=== PATIENT | female | born 1935 | race Caucasian/White ===

== ENCOUNTER 2021-10-11 03:15 | Emergency (ER) | payer MEDICARE, BC ==
[2021-10-11] MEDS ORDERED: Lactated Ringers 1,000 ML IV ONE (03:26)
[2021-10-11] MEDS ORDERED: Prochlorperazine 10 MG/2 ML SDV IVPUSH ONE (03:27)
[2021-10-11 03:54] VITALS: PULSE 53
[2021-10-11] MEDS ORDERED: HYDROmorphone 2 MG/ML SDV IVPUSH ONE (04:16)
[2021-10-11] MEDS ORDERED: Ondansetron 4 MG/2 ML SDV IVPUSH ONE (04:16)
[2021-10-11] MEDS ORDERED: Lactated Ringers 1,000 ML IV SCH (05:00)
[2021-10-11 06:20] VITALS: BP 144/55
== END 2021-10-11 06:35 ==
LOC: FB.ED 03:15
DX: K56.609 Unspecified intestinal obstruction, unspecified as to partial versus complete obstruction (principal); I10 Essential (primary) hypertension; Z88.1 Allergy status to other antibiotic agents; Z79.899 Other long term (current) drug therapy; Z79.01 Long term (current) use of anticoagulants; Z20.822 Contact with and (suspected) exposure to COVID-19
CPT/HCPCS: 36415; 43752; 74019; 74176; 80048; 81001; 85027; 96374; 96375; 99284; 99285-25; J0780; J1170; J2405; J7120; U0002

== ENCOUNTER 2021-10-20 10:50 | Inpatient (IN) | payer MEDICARE, BC ==
[2021-10-20] MEDS ORDERED: Nitroglycerin 0.4 MG Tab.SL SL PRN (13:12)
[2021-10-20] MEDS ORDERED: Triamcinolone Acetonide 0.1% Crm 15 GM Tube TOP PRN (13:12)
[2021-10-20] MEDS ORDERED: Polyethylene Glycol 3350 Powder 17 GM Packet PO PRN (13:12)
[2021-10-20] MEDS ORDERED: oxyCODONE 5 MG Tab ONE (13:31)
[2021-10-20] MEDS: oxyCODONE 5 MG Tab PO PRN (13:33)
[2021-10-20] MEDS: Mupirocin Oint 22 GM Tube TOP SCH ×2 (15:19→20:32)
[2021-10-20] MEDS: Acetaminophen 500 MG Tab PO PRN (18:13)
[2021-10-20] MEDS: Metoprolol Succinate 50 MG Tab.ER PO SCH (20:32)
[2021-10-20] MEDS: Apixaban 5 MG Tab PO SCH (20:32)
[2021-10-21] MEDS: Acetaminophen 500 MG Tab PO PRN ×3 (00:10→23:30)
[2021-10-21] MEDS ORDERED: Non-Formulary Medication 1 Each (Omega-3 Fatty Acids/Fish Oil [Fish Oil 1,000 Mg Capsule] PO SCH (09:00)
[2021-10-21] MEDS: Mupirocin Oint 22 GM Tube TOP SCH ×3 (09:13→20:42)
[2021-10-21] MEDS: Furosemide 20 MG Tab PO SCH (09:17)
[2021-10-21] MEDS: Apixaban 5 MG Tab PO SCH ×2 (09:17→20:52)
[2021-10-21] MEDS: Potassium Chloride 10 MEQ Tab.ER PO SCH (09:17)
[2021-10-21] MEDS: Amiodarone 200 MG Tab PO SCH (09:17)
[2021-10-21] MEDS: Chondroitin/Glucosamine Cap PO SCH (09:18)
[2021-10-21] MEDS: atorvaSTATin 10 MG Tab PO SCH (09:19)
[2021-10-21] MEDS: amLODIPine 10 MG Tab PO SCH (09:30)
[2021-10-21] MEDS: Metoprolol Succinate 100 MG Tab.ER PO SCH (09:30)
[2021-10-21] MEDS: Calcium Carbonate 500 MG Tablet PO SCH (09:31)
[2021-10-21] MEDS: Metoprolol Succinate 50 MG Tab.ER PO SCH (20:53)
[2021-10-22] MEDS: Mupirocin Oint 22 GM Tube TOP SCH ×3 (09:52→20:44)
[2021-10-22] MEDS: amLODIPine 10 MG Tab PO SCH (09:55)
[2021-10-22] MEDS: Potassium Chloride 10 MEQ Tab.ER PO SCH (09:56)
[2021-10-22] MEDS: Apixaban 5 MG Tab PO SCH ×2 (09:56→20:45)
[2021-10-22] MEDS: atorvaSTATin 10 MG Tab PO SCH (09:56)
[2021-10-22] MEDS: Amiodarone 200 MG Tab PO SCH (09:56)
[2021-10-22] MEDS: Chondroitin/Glucosamine Cap PO SCH (09:56)
[2021-10-22] MEDS: Calcium Carbonate 500 MG Tablet PO SCH (09:57)
[2021-10-22] MEDS: Metoprolol Succinate 100 MG Tab.ER PO SCH (09:57)
[2021-10-22] MEDS: Furosemide 20 MG Tab PO SCH (09:57)
[2021-10-22] MEDS: Metoprolol Succinate 50 MG Tab.ER PO SCH (20:45)
[2021-10-22] MEDS: Acetaminophen 500 MG Tab PO PRN (21:54)
[2021-10-23] MEDS: Mupirocin Oint 22 GM Tube TOP SCH ×3 (09:19→21:04)
[2021-10-23] MEDS: Furosemide 20 MG Tab PO SCH (09:20)
[2021-10-23] MEDS: Amiodarone 200 MG Tab PO SCH (09:21)
[2021-10-23] MEDS: amLODIPine 10 MG Tab PO SCH (09:22)
[2021-10-23] MEDS: Potassium Chloride 10 MEQ Tab.ER PO SCH (09:22)
[2021-10-23] MEDS: Chondroitin/Glucosamine Cap PO SCH (09:23)
[2021-10-23] MEDS: atorvaSTATin 10 MG Tab PO SCH (09:24)
[2021-10-23] MEDS: Calcium Carbonate 500 MG Tablet PO SCH (09:24)
[2021-10-23] MEDS: Metoprolol Succinate 100 MG Tab.ER PO SCH (09:25)
[2021-10-23] MEDS: Apixaban 5 MG Tab PO SCH ×2 (09:33→21:03)
[2021-10-23] MEDS: Phenylephrine 0.5% Nasal Spray 15 ML Bot NASBOTH PRN ×2 (11:30→13:15)
[2021-10-23] MEDS: Aloe Vera/Sodium Chloride Gel 14.1 GM Tube NAS SCH ×2 (11:30→21:04)
[2021-10-23] MEDS: Acetaminophen 500 MG Tab PO PRN ×2 (13:41→19:41)
[2021-10-23] MEDS: Metoprolol Succinate 50 MG Tab.ER PO SCH (21:03)
[2021-10-24] MEDS: Acetaminophen 500 MG Tab PO PRN ×3 (01:53→20:43)
[2021-10-24] MEDS: Mupirocin Oint 22 GM Tube TOP SCH ×3 (08:33→20:38)
[2021-10-24] MEDS: Potassium Chloride 10 MEQ Tab.ER PO SCH (08:34)
[2021-10-24] MEDS: Apixaban 5 MG Tab PO SCH ×2 (08:34→20:38)
[2021-10-24] MEDS: Calcium Carbonate 500 MG Tablet PO SCH (08:36)
[2021-10-24] MEDS: Chondroitin/Glucosamine Cap PO SCH (08:36)
[2021-10-24] MEDS: Amiodarone 200 MG Tab PO SCH (08:37)
[2021-10-24] MEDS: atorvaSTATin 10 MG Tab PO SCH (08:38)
[2021-10-24] MEDS: Furosemide 20 MG Tab PO SCH (08:38)
[2021-10-24] MEDS: amLODIPine 10 MG Tab PO SCH (08:40)
[2021-10-24] MEDS: Metoprolol Succinate 100 MG Tab.ER PO SCH (08:41)
[2021-10-24] MEDS: Aloe Vera/Sodium Chloride Gel 14.1 GM Tube NAS SCH ×2 (09:26→20:38)
[2021-10-24] MEDS: Metoprolol Succinate 50 MG Tab.ER PO SCH (20:39)
[2021-10-25] MEDS: Mupirocin Oint 22 GM Tube TOP SCH ×3 (08:50→21:21)
[2021-10-25] MEDS: Chondroitin/Glucosamine Cap PO SCH (08:54)
[2021-10-25] MEDS: Potassium Chloride 10 MEQ Tab.ER PO SCH (08:55)
[2021-10-25] MEDS: Amiodarone 200 MG Tab PO SCH (08:56)
[2021-10-25] MEDS: amLODIPine 10 MG Tab PO SCH (08:56)
[2021-10-25] MEDS: Metoprolol Succinate 100 MG Tab.ER PO SCH (08:56)
[2021-10-25] MEDS: atorvaSTATin 10 MG Tab PO SCH (08:57)
[2021-10-25] MEDS: Calcium Carbonate 500 MG Tablet PO SCH (08:57)
[2021-10-25] MEDS: Furosemide 20 MG Tab PO SCH (08:57)
[2021-10-25] MEDS: Apixaban 5 MG Tab PO SCH ×2 (08:58→21:22)
[2021-10-25] MEDS: Aloe Vera/Sodium Chloride Gel 14.1 GM Tube NAS SCH ×2 (08:59→21:21)
[2021-10-25] MEDS: Acetaminophen 500 MG Tab PO PRN ×2 (13:24→21:22)
[2021-10-25] MEDS: Metoprolol Succinate 50 MG Tab.ER PO SCH (21:28)
[2021-10-26] MEDS: Aloe Vera/Sodium Chloride Gel 14.1 GM Tube NAS SCH ×2 (08:26→20:39)
[2021-10-26] MEDS: Mupirocin Oint 22 GM Tube TOP SCH ×3 (08:26→20:39)
[2021-10-26] MEDS: atorvaSTATin 10 MG Tab PO SCH (08:27)
[2021-10-26] MEDS: Amiodarone 200 MG Tab PO SCH (08:27)
[2021-10-26] MEDS: Chondroitin/Glucosamine Cap PO SCH (08:27)
[2021-10-26] MEDS: amLODIPine 10 MG Tab PO SCH (08:27)
[2021-10-26] MEDS: Apixaban 5 MG Tab PO SCH ×2 (08:27→20:38)
[2021-10-26] MEDS: Metoprolol Succinate 100 MG Tab.ER PO SCH (08:28)
[2021-10-26] MEDS: Furosemide 20 MG Tab PO SCH (08:28)
[2021-10-26] MEDS: Potassium Chloride 10 MEQ Tab.ER PO SCH (08:28)
[2021-10-26] MEDS: Calcium Carbonate 500 MG Tablet PO SCH (08:29)
[2021-10-26] MEDS: oxyCODONE 5 MG Tab PO PRN (08:34)
[2021-10-26] MEDS ORDERED: Acetaminophen/HYDROcodone 325-5 MG Tab PO PRN (09:46)
[2021-10-26] MEDS: Acetaminophen 325 MG Tab PO PRN (20:38)
[2021-10-26] MEDS: Metoprolol Succinate 50 MG Tab.ER PO SCH (20:38)
[2021-10-27] MEDS: Mupirocin Oint 22 GM Tube TOP SCH ×3 (08:43→20:28)
[2021-10-27] MEDS: Aloe Vera/Sodium Chloride Gel 14.1 GM Tube NAS SCH ×2 (08:43→20:28)
[2021-10-27] MEDS: Chondroitin/Glucosamine Cap PO SCH (08:46)
[2021-10-27] MEDS: Apixaban 5 MG Tab PO SCH ×2 (08:46→20:27)
[2021-10-27] MEDS: Amiodarone 200 MG Tab PO SCH (08:46)
[2021-10-27] MEDS: Potassium Chloride 10 MEQ Tab.ER PO SCH (08:47)
[2021-10-27] MEDS: Furosemide 20 MG Tab PO SCH (08:47)
[2021-10-27] MEDS: amLODIPine 10 MG Tab PO SCH (08:47)
[2021-10-27] MEDS: atorvaSTATin 10 MG Tab PO SCH (08:47)
[2021-10-27] MEDS: Calcium Carbonate 500 MG Tablet PO SCH (08:48)
[2021-10-27] MEDS: Metoprolol Succinate 100 MG Tab.ER PO SCH (08:48)
[2021-10-27] MEDS: Metoprolol Succinate 50 MG Tab.ER PO SCH (20:27)
[2021-10-27] MEDS: Acetaminophen 325 MG Tab PO PRN (20:28)
[2021-10-28] MEDS: Aloe Vera/Sodium Chloride Gel 14.1 GM Tube NAS SCH ×2 (10:10→21:02)
[2021-10-28] MEDS: Mupirocin Oint 22 GM Tube TOP SCH ×3 (10:11→21:03)
[2021-10-28] MEDS: Apixaban 5 MG Tab PO SCH ×2 (10:12→21:03)
[2021-10-28] MEDS: Chondroitin/Glucosamine Cap PO SCH (10:12)
[2021-10-28] MEDS: Metoprolol Succinate 100 MG Tab.ER PO SCH (10:13)
[2021-10-28] MEDS: Furosemide 20 MG Tab PO SCH (10:14)
[2021-10-28] MEDS: amLODIPine 10 MG Tab PO SCH (10:14)
[2021-10-28] MEDS: Amiodarone 200 MG Tab PO SCH (10:14)
[2021-10-28] MEDS: Potassium Chloride 10 MEQ Tab.ER PO SCH (10:14)
[2021-10-28] MEDS: Calcium Carbonate 500 MG Tablet PO SCH (10:15)
[2021-10-28] MEDS: atorvaSTATin 10 MG Tab PO SCH (10:15)
[2021-10-28] MEDS: Acetaminophen 325 MG Tab PO PRN (21:05)
[2021-10-28] MEDS: Metoprolol Succinate 50 MG Tab.ER PO SCH (21:07)
[2021-10-29] MEDS: Aloe Vera/Sodium Chloride Gel 14.1 GM Tube NAS SCH ×2 (08:17→20:25)
[2021-10-29] MEDS: Mupirocin Oint 22 GM Tube TOP SCH ×3 (08:18→20:26)
[2021-10-29] MEDS: amLODIPine 10 MG Tab PO SCH (08:19)
[2021-10-29] MEDS: Chondroitin/Glucosamine Cap PO SCH (08:19)
[2021-10-29] MEDS: Apixaban 5 MG Tab PO SCH ×2 (08:20→20:28)
[2021-10-29] MEDS: Amiodarone 200 MG Tab PO SCH (08:20)
[2021-10-29] MEDS: Potassium Chloride 10 MEQ Tab.ER PO SCH (08:20)
[2021-10-29] MEDS: Metoprolol Succinate 100 MG Tab.ER PO SCH (08:21)
[2021-10-29] MEDS: Furosemide 20 MG Tab PO SCH (08:23)
[2021-10-29] MEDS: Calcium Carbonate 500 MG Tablet PO SCH (08:23)
[2021-10-29] MEDS: atorvaSTATin 10 MG Tab PO SCH (10:43)
[2021-10-29] MEDS: Ciprofloxacin 500 MG Tab PO SCH (20:25)
[2021-10-29] MEDS: Metoprolol Succinate 50 MG Tab.ER PO SCH (20:28)
[2021-10-29] MEDS: Acetaminophen 325 MG Tab PO PRN (20:37)
[2021-10-30] MEDS: Aloe Vera/Sodium Chloride Gel 14.1 GM Tube NAS SCH ×2 (08:40→20:41)
[2021-10-30] MEDS: Chondroitin/Glucosamine Cap PO SCH (08:41)
[2021-10-30] MEDS: Mupirocin Oint 22 GM Tube TOP SCH ×3 (08:41→20:40)
[2021-10-30] MEDS: Potassium Chloride 10 MEQ Tab.ER PO SCH (08:42)
[2021-10-30] MEDS: Apixaban 5 MG Tab PO SCH ×2 (08:42→20:35)
[2021-10-30] MEDS: Furosemide 20 MG Tab PO SCH (08:42)
[2021-10-30] MEDS: Calcium Carbonate 500 MG Tablet PO SCH (08:42)
[2021-10-30] MEDS: Amiodarone 200 MG Tab PO SCH (08:43)
[2021-10-30] MEDS: atorvaSTATin 10 MG Tab PO SCH (08:44)
[2021-10-30] MEDS: amLODIPine 10 MG Tab PO SCH (08:44)
[2021-10-30] MEDS: Metoprolol Succinate 100 MG Tab.ER PO SCH (08:45)
[2021-10-30] MEDS: Ciprofloxacin 500 MG Tab PO SCH ×3 (08:53→20:34)
[2021-10-30] MEDS: Metoprolol Succinate 50 MG Tab.ER PO SCH (20:36)
[2021-10-30] MEDS: Acetaminophen 325 MG Tab PO PRN (20:37)
[2021-10-31] MEDS: Aloe Vera/Sodium Chloride Gel 14.1 GM Tube NAS SCH ×2 (08:54→21:19)
[2021-10-31] MEDS: Mupirocin Oint 22 GM Tube TOP SCH ×3 (08:54→21:19)
[2021-10-31] MEDS: Apixaban 5 MG Tab PO SCH ×2 (08:57→21:18)
[2021-10-31] MEDS: Chondroitin/Glucosamine Cap PO SCH (08:57)
[2021-10-31] MEDS: Furosemide 20 MG Tab PO SCH (08:58)
[2021-10-31] MEDS: atorvaSTATin 10 MG Tab PO SCH (08:58)
[2021-10-31] MEDS: Potassium Chloride 10 MEQ Tab.ER PO SCH (08:58)
[2021-10-31] MEDS: Calcium Carbonate 500 MG Tablet PO SCH (08:59)
[2021-10-31] MEDS: amLODIPine 10 MG Tab PO SCH (08:59)
[2021-10-31] MEDS: Metoprolol Succinate 100 MG Tab.ER PO SCH (09:00)
[2021-10-31] MEDS: Amiodarone 200 MG Tab PO SCH (09:01)
[2021-10-31] MEDS: Ciprofloxacin 500 MG Tab PO SCH ×2 (09:10→21:19)
[2021-10-31] MEDS: Acetaminophen 325 MG Tab PO PRN (21:18)
[2021-10-31] MEDS: Metoprolol Succinate 50 MG Tab.ER PO SCH (21:21)
[2021-10-31 21:22] VITALS: BP 136/53; PULSE 55
[2021-11-01] MEDS: Chondroitin/Glucosamine Cap PO SCH (08:24)
[2021-11-01] MEDS: Mupirocin Oint 22 GM Tube TOP SCH (08:24)
[2021-11-01] MEDS: Aloe Vera/Sodium Chloride Gel 14.1 GM Tube NAS SCH (08:24)
[2021-11-01] MEDS: Apixaban 5 MG Tab PO SCH (08:25)
[2021-11-01] MEDS: Amiodarone 200 MG Tab PO SCH (08:25)
[2021-11-01] MEDS: Potassium Chloride 10 MEQ Tab.ER PO SCH (08:25)
[2021-11-01] MEDS: amLODIPine 10 MG Tab PO SCH (08:26)
[2021-11-01] MEDS: Furosemide 20 MG Tab PO SCH (08:26)
[2021-11-01] MEDS: atorvaSTATin 10 MG Tab PO SCH (08:26)
[2021-11-01] MEDS: Calcium Carbonate 500 MG Tablet PO SCH (08:26)
[2021-11-01] MEDS: Metoprolol Succinate 100 MG Tab.ER PO SCH (08:27)
[2021-11-01] MEDS: Ciprofloxacin 500 MG Tab PO SCH (08:32)
== END 2021-11-01 13:25 | disposition home health service (06) | DRG 948 ==
LOC: FB.MS 12:20
PROVIDERS: ADMIT Family Medicine; ATTEND Student in an Organized Health Care Education/Training Program
PROC: 2Y41X5Z Packing of Nasal Region using Packing Material (ICD-10-PCS; principal; 2021-10-23)
DX: R53.1 Weakness (principal); T81.49XA Infection following a procedure, other surgical site, initial encounter; K91.30 Postprocedural intestinal obstruction, unspecified as to partial versus complete; I48.11 Longstanding persistent atrial fibrillation; I10 Essential (primary) hypertension; R04.0 Epistaxis; G89.29 Other chronic pain; M54.9 Dorsalgia, unspecified; Z88.1 Allergy status to other antibiotic agents; Z51.5 Encounter for palliative care; Z90.49 Acquired absence of other specified parts of digestive tract; Z87.19 Personal history of other diseases of the digestive system; Z98.890 Other specified postprocedural states; Z78.9 Other specified health status; Z95.5 Presence of coronary angioplasty implant and graft; Z79.899 Other long term (current) drug therapy; Z98.51 Tubal ligation status
CPT/HCPCS: 36415; 80048; 85025; 97110-GO; 97110-GP; 97116-GP; 97161-GP; 97165-GO; 97530-GO; 97535-GO; A9270-GY

== ENCOUNTER 2022-07-27 11:28 | Emergency (ER) | payer MEDICARE, BC ==
[2022-07-27] MEDS ORDERED: Acetaminophen/HYDROcodone 325-5 MG Tab PO ONE ×2 (11:39→13:11)
[2022-07-27] MEDS ORDERED: Ketorolac 30 MG/ML SDV IM ONE (11:39)
[2022-07-27 13:14] VITALS: BP 157/71; PULSE 52
[2022-07-27 13:17] LABS: ESTIMATED GFR 55 mL/min (>60)
== END 2022-07-27 14:18 | disposition home or self-care (01) ==
LOC: FB.ED 11:28
DX: M51.35 Other intervertebral disc degeneration, thoracolumbar region (principal); M47.815 Spondylosis without myelopathy or radiculopathy, thoracolumbar region; M43.15 Spondylolisthesis, thoracolumbar region; I48.91 Unspecified atrial fibrillation; I10 Essential (primary) hypertension; Z79.01 Long term (current) use of anticoagulants; Z88.1 Allergy status to other antibiotic agents; Z79.899 Other long term (current) drug therapy
CPT/HCPCS: 36415; 72072; 72100; 80053; 84484; 85025; 96372; 99284; A9270-GY; J1885

== ENCOUNTER 2022-10-01 11:02 | Emergency (ER) | payer MEDICARE, BC ==
[2022-10-01] MEDS ORDERED: traMADol 50 MG Tab PO ONE (11:03)
[2022-10-01] MEDS ORDERED: Diazepam 2 MG Tab PO ONE (11:48)
[2022-10-01 12:24] LABS: ESTIMATED GFR 62 mL/min (>60)
[2022-10-01] MEDS ORDERED: Sodium Chloride 0.9% 10 ML Syringe FLUSH PRN (13:30)
[2022-10-01] MEDS ORDERED: Ketorolac 30 MG/ML SDV IVPUSH ONE (13:30)
[2022-10-01] MEDS ORDERED: Sodium Chloride 0.9% 500 ML IV ONE (13:32)
[2022-10-01] MEDS ORDERED: Iopamidol 755 Mg/ML 100 ML Bottle IV ONE (13:41)
[2022-10-01] MEDS ORDERED: Ondansetron 4 MG/2 ML SDV IVPUSH ONE (14:25)
[2022-10-01] MEDS ORDERED: Morphine 4 MG/ML VIAL IVPUSH ONE (14:25)
[2022-10-01 16:24] VITALS: BP 153/63; PULSE 48
== END 2022-10-01 16:18 | disposition home or self-care (01) ==
LOC: FB.ED 11:02
DX: S29.012A Strain of muscle and tendon of back wall of thorax, initial encounter (principal); I48.91 Unspecified atrial fibrillation; I10 Essential (primary) hypertension; Z88.1 Allergy status to other antibiotic agents; Z79.01 Long term (current) use of anticoagulants; Z79.899 Other long term (current) drug therapy
CPT/HCPCS: 36415; 71046; 71275; 80053; 81001; 83735; 84484; 85025; 85379; 86140; 93005; 93010; 96361; 96374; 96375; 99284; 99284-25; A9270-GY; J1885; J2270; J2405; J3490; J7040; Q9967

== ENCOUNTER 2022-11-04 21:34 | Inpatient (IN) | payer MEDICARE, BC ==
[2022-11-04] MEDS ORDERED: traMADol 50 MG Tab PO ONE (22:02)
[2022-11-04 22:04] LABS: BASOPHILS ABSOLUTE AUTO 0.1 x10-3/uL (0.0-0.1); BASOPHILS PERCENT AUTO 0.9 % (0.2-1.5); EOSINOPHILS ABSOLUTE AUTO 0.1 x10-3/uL (0.0-0.8); EOSINOPHILS PERCENT AUTO 1.5 % (0.6-8.1); LYMPHOCYTES ABSOLUTE AUTO 2.2 x10-3/uL (1.0-4.4); LYMPHOCYTES PERCENT AUTO 26.7 % (18.4-52.1); MEAN CORPUSCULAR HEMOGLOBIN 36.1 pg (23.9-33.9); MEAN CORPUSCULAR HGB CONC 34.2 g/dL (31.9-34.8); MEAN CORPUSCULAR VOLUME 105.5 fL (76.7-100.5); MEAN PLATELET VOLUME 7.6 fL (7.1-12.4); MONOCYTES ABSOLUTE AUTO 0.9 x10-3/uL (0.3-1.0); MONOCYTES PERCENT AUTO 10.8 % (4.4-15.7); NEUTROPHILS PERCENT AUTO 60.1 % (30.8-76.2); PLATELET COUNT,PLT 299 x10(3)uL (151-488); RED BLOOD CELL COUNT 3.88 x10(6)uL (3.60-5.20); RED CELL DISTRIBUTION WIDTH 13.4 % (12.3-16.5); WHITE BLOOD CELL COUNT,WBC 8.3 x10-3/uL (3.0-10.3)
[2022-11-04 22:11] LABS: BLOOD UREA NITROGEN,BUN 21 mg/dL (7-18); BUN/CREATININE RATIO 19.1 (9-20); CALCIUM 9.2 mg/dL (8.6-10.2); CARBON DIOXIDE,CO2 30 mmol/L (21-32); CHLORIDE,CL 102 mmol/L (100-110); CREATININE 1.1 mg/dL (0.55-1.02); EST CRCL DRUG DOSING (CG) 32.42 mL/min; ESTIMATED GFR 49 mL/min (>60); GLUCOSE RANDOM 115 mg/dL (80-116); POTASSIUM,K 4.4 mmol/L (3.5-5.3); SODIUM,NA 139 mmol/L (135-145)
[2022-11-04 22:17] LABS: A/G RATIO 0.9; ALANINE AMINOTRANSFERASE,ALT 61 U/L (12-36); ALBUMIN 3.5 g/dL (3.2-4.6); ALKALINE PHOSPHATASE 101 IU/L (56-112); ASPARTATE AMNIOTRANSFERASE,AST 41 IU/L (5-25); BILIRUBIN TOTAL 0.4 mg/dL (0.1-1.3); PROTEIN TOTAL,TP 7.4 g/dL (6.0-8.0)
[2022-11-05] MEDS ORDERED: Ondansetron 4 MG Tab.DIS PO PRN (00:16)
[2022-11-05] MEDS ORDERED: traMADol 50 MG Tab PO PRN (00:24)
[2022-11-05 00:49] LABS: BILIRUBIN,URINE NEGATIVE (NEGATIVE); GLUCOSE,URINE NORMAL (NORMAL); KETONES,URINE NEGATIVE (NEGATIVE); LEUKOCYTE ESTERASE,URINE NEGATIVE (NEGATIVE); NITRITE,URINE NEGATIVE (NEGATIVE); OCCULT BLOOD,URINE NEGATIVE (NEGATIVE); PROTEIN,URINE NEGATIVE (NEGATIVE); UROBILINOGEN,URINE NORMAL (NEGATIVE)
[2022-11-05 00:53] LABS: APPEARANCE,URINE CLEAR (CLEAR); BACTERIA,URINE FEW (NS); COLOR,URINE YELLOW (YELLOW); RBC,URINE 0-5 (0-5); SQUAMOUS EPITHELIAL CELLS,UR FEW (NS,R,O); WBC,URINE 0-5 (0-5)
[2022-11-05] MEDS: Acetaminophen/HYDROcodone 325-5 MG Tab PO PRN ×4 (00:59→20:18)
[2022-11-05] MEDS: Amiodarone 200 MG Tab PO SCH (12:03)
[2022-11-05] MEDS: Apixaban 5 MG Tab PO SCH ×2 (12:03→20:18)
[2022-11-05] MEDS: Furosemide 20 MG Tab PO SCH (12:04)
[2022-11-05] MEDS: Lisinopril 20 MG Tab PO SCH (12:04)
[2022-11-05] MEDS: amLODIPine 10 MG Tab PO SCH (12:04)
[2022-11-05] MEDS: Metoprolol Succinate 50 MG Tab.ER PO SCH (12:05)
[2022-11-05] MEDS: Lidocaine 4% 1 each Patch TOP PRN (12:09)
[2022-11-05] MEDS: Potassium Chloride 10 MEQ Tab.ER PO SCH (12:19)
[2022-11-05] MEDS: Acetaminophen 325 MG Tab PO PRN (16:14)
[2022-11-05] MEDS: Polyethylene Glycol 3350 Powder 17 GM Packet PO PRN (20:18)
[2022-11-05] MEDS ORDERED: atorvaSTATin 10 MG Tab PO SCH (21:00)
[2022-11-06] MEDS: Acetaminophen 325 MG Tab PO PRN ×5 (00:19→22:14)
[2022-11-06] MEDS: Apixaban 5 MG Tab PO SCH (08:39)
[2022-11-06] MEDS: Metoprolol Succinate 50 MG Tab.ER PO SCH (08:39)
[2022-11-06] MEDS: amLODIPine 10 MG Tab PO SCH (08:40)
[2022-11-06] MEDS: Furosemide 20 MG Tab PO SCH (08:40)
[2022-11-06] MEDS: Acetaminophen/HYDROcodone 325-5 MG Tab PO PRN (08:40)
[2022-11-06] MEDS: Lisinopril 20 MG Tab PO SCH (08:42)
[2022-11-06] MEDS: Potassium Chloride 10 MEQ Tab.ER PO SCH (08:42)
[2022-11-06] MEDS: Amiodarone 200 MG Tab PO SCH (08:42)
[2022-11-06] MEDS: Lidocaine 4% 1 each Patch TOP PRN (12:55)
[2022-11-06] MEDS ORDERED: atorvaSTATin 10 MG Tab PO SCH (21:00)
[2022-11-07] MEDS: Acetaminophen/HYDROcodone 325-5 MG Tab PO PRN ×3 (01:59→20:18)
[2022-11-07] MEDS: Polyethylene Glycol 3350 Powder 17 GM Packet PO PRN (07:02)
[2022-11-07] MEDS ORDERED: Lidocaine 4% 1 each Patch TOP PRN (08:00)
[2022-11-07] MEDS: Metoprolol Succinate 50 MG Tab.ER PO SCH (08:28)
[2022-11-07] MEDS: Potassium Chloride 10 MEQ Tab.ER PO SCH (08:29)
[2022-11-07] MEDS: Amiodarone 200 MG Tab PO SCH (08:29)
[2022-11-07] MEDS: Apixaban 5 MG Tab PO SCH ×2 (08:29→20:11)
[2022-11-07] MEDS: Lisinopril 20 MG Tab PO SCH (08:29)
[2022-11-07] MEDS: Furosemide 20 MG Tab PO SCH (08:30)
[2022-11-07] MEDS: amLODIPine 10 MG Tab PO SCH (08:31)
[2022-11-07] MEDS: Acetaminophen 325 MG Tab PO PRN (13:17)
[2022-11-07] MEDS: atorvaSTATin 10 MG Tab PO SCH (20:11)
[2022-11-08] MEDS: Acetaminophen 325 MG Tab PO PRN (01:49)
[2022-11-08] MEDS: Acetaminophen/HYDROcodone 325-5 MG Tab PO PRN (03:31)
[2022-11-08] MEDS: Apixaban 5 MG Tab PO SCH ×2 (08:29→20:22)
[2022-11-08] MEDS: Potassium Chloride 10 MEQ Tab.ER PO SCH (08:29)
[2022-11-08] MEDS: Amiodarone 200 MG Tab PO SCH (08:29)
[2022-11-08] MEDS: Lisinopril 20 MG Tab PO SCH (08:30)
[2022-11-08] MEDS: Metoprolol Succinate 50 MG Tab.ER PO SCH (08:30)
[2022-11-08] MEDS: Furosemide 20 MG Tab PO SCH (08:30)
[2022-11-08] MEDS: amLODIPine 10 MG Tab PO SCH (08:30)
[2022-11-08] MEDS: Polyethylene Glycol 3350 Powder 17 GM Packet PO PRN (08:35)
[2022-11-08] MEDS ORDERED: Acetaminophen 500 MG Tab PO PRN (08:58)
[2022-11-08] MEDS ORDERED: Furosemide 20 MG Tab PO ONE (13:38)
[2022-11-08] MEDS: Acetaminophen 500 MG Tab PO SCH ×2 (14:33→20:31)
[2022-11-08] MEDS: atorvaSTATin 10 MG Tab PO SCH (20:22)
[2022-11-08] MEDS: Naproxen 250 MG Tab PO PRN (22:07)
[2022-11-09] MEDS: Acetaminophen 500 MG Tab PO SCH ×4 (04:14→20:45)
[2022-11-09 06:48] LABS: BLOOD UREA NITROGEN,BUN 14 mg/dL (7-18); CALCIUM 8.9 mg/dL (8.6-10.2); CARBON DIOXIDE,CO2 30 mmol/L (21-32); CHLORIDE,CL 100 mmol/L (100-110); CREATININE 0.7 mg/dL (0.55-1.02); EST CRCL DRUG DOSING (CG) 50.95 mL/min; ESTIMATED GFR 84 mL/min (>60); GLUCOSE RANDOM 101 mg/dL (80-116); POTASSIUM,K 4.4 mmol/L (3.5-5.3); SODIUM,NA 136 mmol/L (135-145)
[2022-11-09] MEDS: Lisinopril 20 MG Tab PO SCH (08:25)
[2022-11-09] MEDS: Furosemide 20 MG Tab PO SCH (08:25)
[2022-11-09] MEDS: amLODIPine 10 MG Tab PO SCH (08:25)
[2022-11-09] MEDS: Amiodarone 200 MG Tab PO SCH (08:25)
[2022-11-09] MEDS: Metoprolol Succinate 50 MG Tab.ER PO SCH (08:25)
[2022-11-09] MEDS: Potassium Chloride 10 MEQ Tab.ER PO SCH (08:25)
[2022-11-09] MEDS: Apixaban 5 MG Tab PO SCH ×2 (08:26→20:45)
[2022-11-09] MEDS ORDERED: Bisacodyl 10 MG Supp RECTAL ONE (10:00)
[2022-11-09] MEDS: Polyethylene Glycol 3350 Powder 17 GM Packet PO PRN (11:39)
[2022-11-09] MEDS: atorvaSTATin 10 MG Tab PO SCH (20:45)
[2022-11-09] MEDS: Naproxen 250 MG Tab PO PRN (22:01)
[2022-11-10] MEDS: Acetaminophen 500 MG Tab PO SCH ×2 (02:34→09:27)
[2022-11-10] MEDS: Amiodarone 200 MG Tab PO SCH (08:23)
[2022-11-10] MEDS: Potassium Chloride 10 MEQ Tab.ER PO SCH (08:23)
[2022-11-10] MEDS: Apixaban 5 MG Tab PO SCH (08:23)
[2022-11-10] MEDS: Lisinopril 20 MG Tab PO SCH (08:23)
[2022-11-10] MEDS: Furosemide 20 MG Tab PO SCH (08:23)
[2022-11-10] MEDS: amLODIPine 10 MG Tab PO SCH (08:23)
[2022-11-10] MEDS: Metoprolol Succinate 50 MG Tab.ER PO SCH (08:24)
[2022-11-10 11:39] VITALS: BP 140/62; PULSE 57
== END 2022-11-10 13:00 | disposition home or self-care (01) | DRG 948 ==
LOC: FB.ED 21:34 → FB.MS 11-05 00:16 → OBSVTOIN 11-07 08:42
PROVIDERS: ADMIT Emergency Medicine; ATTEND Family Medicine
DX: R53.1 Weakness (principal); M54.50 Low back pain, unspecified; J90 Pleural effusion, not elsewhere classified; I48.11 Longstanding persistent atrial fibrillation; M54.6 Pain in thoracic spine; M79.18 Myalgia, other site; K59.01 Slow transit constipation; H54.7 Unspecified visual loss; I11.0 Hypertensive heart disease with heart failure; I50.9 Heart failure, unspecified; M54.9 Dorsalgia, unspecified; G89.29 Other chronic pain; R32 Unspecified urinary incontinence; K59.00 Constipation, unspecified; I25.2 Old myocardial infarction; I10 Essential (primary) hypertension; Z79.01 Long term (current) use of anticoagulants; Z90.49 Acquired absence of other specified parts of digestive tract; Z88.1 Allergy status to other antibiotic agents; Z79.899 Other long term (current) drug therapy; Z95.5 Presence of coronary angioplasty implant and graft; W01.0XXA Fall on same level from slipping, tripping and stumbling without subsequent striking against object, initial encounter
CPT/HCPCS: 36415 ×2; 71111; 72080; 80053; 81001; 84484; 85025; 93005; 93010; 94150; 99222; 99232; 99283; 99285; A9270 ×44; G0378 ×5; 71046; 80048; 97161-GP; 97165-GO; 97530-GO; 97535-GO; 99238